=== PATIENT | female | born 1990 | race American Indian/Alaskan Native ===

== ENCOUNTER 2019-07-13 23:07 | Emergency (ER) | payer SELFPAY ==
[2019-07-14] MEDS ORDERED: IBUPROFEN PO ONE (00:19)
[2019-07-14] MEDS ORDERED: LIDOCAINE VISCOUS 2% PO ONE (00:20)
[2019-07-14] MEDS ORDERED: BICILLIN L-A IM ONE (01:35)
--- NOTE | 2019-07-14 01:50 | Emergency Department Report ---
ED General Adult HPI - General Chief complaint: Sore Throat Stated complaint: POSS STREP Source: patient Mode of arrival: Ambulatory Limitations: No Limitations - History of Present Illness Initial comments: Patient is a 28-year-old AA female with a history of chronic recurrent streptococcal pharyngitis who presents to the ED with c/o acute onset persistent severe sore throat and dysphagia for the last 2 weeks. Patient states that she has been taking [id number] medications with no relief. Patient denies fever, chills, nausea, vomiting, cough, nasal and sinus congestion, shortness of breath, chest pain, abdominal pain, dizziness, or headache. MD Complaint: Sore throat; dysphagia -: Gradual, week(s) (2) Location: mouth Radiation: non-radiation Severity scale (0 -10): 5 Quality: burning, aching Consistency: constant Improves with: none Associated Symptoms: denies other symptoms. denies: confusion, chest pain, cough, diaphoresis, fever/chills, headaches, loss of appetite, malaise, nausea/vomiting, rash, seizure, shortness of breath Treatments Prior to Arrival: none - Related Data Previous Rx's Medication Instructions Recorded Last Taken Type Ciprofloxacin HCl [Ciprofloxacin 500 mg PO Q12HR #14 tab 09/06/15 Unknown Rx TAB] Phenazopyridine [Pyridium] 200 mg PO Q8H #9 tab 09/06/15 Unknown Rx Acetaminophen/Codeine [Tylenol #3] 1 tab PO Q6H PRN #15 tab 10/28/15 Unknown Rx Ibuprofen [Motrin 800 MG tab] 800 mg PO Q8HR PRN #30 tablet 10/28/15 Unknown Rx Sulfamethoxazole/Trimethoprim 1 each PO BID #14 tablet 10/28/15 Unknown Rx [Bactrim DS TAB] cephALEXin [Keflex] 500 mg PO Q6HR #28 capsule 10/28/15 Unknown Rx Ibuprofen [Motrin] 600 mg PO Q8H PRN #20 tablet 07/14/19 Unknown Rx Lidocaine Viscous 2% 10 ml PO Q4H PRN #120 ml 07/14/19 Unknown Rx Allergies Allergy/AdvReac Type Severity Reaction Status Date / Time No Known Allergies Allergy Verified 09/06/15 03:17 ED Review of Systems ROS: Stated complaint: POSS STREP Other details as noted in HPI Constitutional: denies: chills, fever Eyes: denies: eye pain, eye discharge, vision change ENT: throat pain, other (dysphagia). denies: ear pain Respiratory: denies: cough, shortness of breath, wheezing Cardiovascular: denies: chest pain, palpitations Endocrine: no symptoms reported. denies: excessive sweating, flushing, intolerance to cold Gastrointestinal: denies: abdominal pain, nausea, diarrhea Genitourinary: denies: urgency, dysuria, discharge Musculoskeletal: arthralgia, myalgia. denies: back pain, joint swelling Skin: denies: rash, lesions Neurological: denies: headache, weakness, paresthesias Psychiatric: denies: anxiety, depression Hematological/Lymphatic: denies: easy bleeding, easy bruising ED Past Medical Hx - Past Medical History Hx Hypertension: Yes (not on meds) Hx Arthritis: No - Surgical History Past Surgical History?: Yes Additional Surgical History: X 1 - Social History Smoking Status: Never Smoker Substance Use Type: Alcohol - Medications Home Medications: Home Medications Medication Instructions Recorded Confirmed Last Taken Type Ciprofloxacin HCl [Ciprofloxacin 500 mg PO Q12HR #14 tab 09/06/15 Unknown Rx TAB] Phenazopyridine [Pyridium] 200 mg PO Q8H #9 tab 09/06/15 Unknown Rx Acetaminophen/Codeine [Tylenol #3] 1 tab PO Q6H PRN #15 tab 10/28/15 Unknown Rx Ibuprofen [Motrin 800 MG tab] 800 mg PO Q8HR PRN #30 tablet 10/28/15 Unknown Rx Sulfamethoxazole/Trimethoprim 1 each PO BID #14 tablet 10/28/15 Unknown Rx [Bactrim DS TAB] cephALEXin [Keflex] 500 mg PO Q6HR #28 capsule 10/28/15 Unknown Rx Ibuprofen [Motrin] 600 mg PO Q8H PRN #20 tablet 07/14/19 Unknown Rx Lidocaine Viscous 2% 10 ml PO Q4H PRN #120 ml 07/14/19 Unknown Rx ED Physical Exam - General Limitations: No Limitations General appearance: alert, in no apparent distress - Head Head exam: Present: atraumatic, normocephalic, normal inspection - Eye Eye exam: Present: normal appearance, PERRL, EOMI. Absent: scleral icterus, conjunctival injection, nystagmus, periorbital swelling Pupils: Present: normal accommodation - ENT ENT exam: Present: mucous membranes moist, TM's normal bilaterally, normal external ear exam, other (Erythematous oropharynx with mild white exudates) - Neck Neck exam: Present: normal inspection, full ROM. Absent: tenderness, meningismus, lymphadenopathy, thyromegaly - Respiratory Respiratory exam: Present: normal lung sounds bilaterally. Absent: respiratory distress, wheezes, rales, rhonchi, chest wall tenderness, accessory muscle use, decreased breath sounds, prolonged expiratory - Cardiovascular Cardiovascular Exam: Present: normal rhythm, tachycardia, normal heart sounds. Absent: systolic murmur, diastolic murmur, rubs, gallop - GI/Abdominal GI/Abdominal exam: Present: soft, normal bowel sounds. Absent: distended, tenderness, guarding, rebound, hyperactive bowel sounds, hypoactive bowel sounds, organomegaly, mass - Rectal Rectal exam: Present: deferred - Extremities Exam Extremities exam: Present: normal inspection, full ROM, normal capillary refill - Back Exam Back exam: Present: normal inspection, full ROM. Absent: tenderness, CVA tenderness (R), CVA tenderness (L), muscle spasm, paraspinal tenderness - Neurological Exam Neurological exam: Present: alert, oriented X3, CN II-XII intact, normal gait, reflexes normal - Psychiatric Psychiatric exam: Present: normal affect, normal mood, anxious - Skin Skin exam: Present: warm, dry, intact, normal color. Absent: rash ED Course Vital Signs 07/13/19 07/14/19 23:15 02:20 Temperature 98.2 F 98 F Pulse Rate 104 H 80 Respiratory 18 16 Rate Blood Pressure 147/98 Blood Pressure 126/87 [Left] O2 Sat by Pulse 10 L 100 Oximetry - Reevaluation(s) Reevaluation #1: 07/14/19 01:53 This is a 28-year-old female who presented to the ED with a sore throat and the sergeant for 2 weeks. Patient has a history of chronic recurrent streptococcal pharyngitis. Rapid strep is positive for group A strep. Patient was treated in the ED for pain and also given Bicillin 1.2 million units intramuscular injection for streptococcal pharyngitis. Patient was discharged home on pain medications and advised to follow-up with her primary care physician in 7-10 days for reevaluation or return to the ED immediately if symptoms get worse. ED Medical Decision Making - Medical Decision Making This is a 28-year-old female who presented to the ED with a sore throat and the sergeant for 2 weeks. Patient has a history of chronic recurrent streptococcal pharyngitis. Rapid strep is positive for group A strep. Patient was treated in the ED for pain and also given Bicillin 1.2 million units intramuscular injection for streptococcal pharyngitis. Patient was discharged home on pain medications and advised to follow-up with her primary care physician in 7-10 days for reevaluation or return to the ED immediately if symptoms get worse. - Differential Diagnosis Strep Pharyngitis; Viral pharyngitis; Tonsillitis Critical care attestation.: If time is entered above; I have spent that time in minutes in the direct care of this critically ill patient, excluding procedure time. ED Disposition Clinical Impression: Acute streptococcal pharyngitis, Acute bacterial tonsillitis Disposition: TO HOME OR SELFCARE Is pt being admited?: No Does the pt Need Aspirin: No Condition: Stable Instructions: Strep Throat (ED), Tonsillitis (ED) Additional Instructions: Take medications with food, drink plenty of fluids and follow up with your Primary Care Physician in 7-10 days for reevaluation. Return to the ED immediately if symptoms get worse. Prescriptions: Lidocaine Viscous 2% 10 ml PO Q4H PRN #120 ml PRN Reason: Pain , Severe (7-10) Ibuprofen [Motrin] 600 mg PO Q8H PRN #20 tablet PRN Reason: Pain Referrals: NEVA ZAMUDIO MD [Primary Care Provider] - 3-5 Days Forms: Work/School Release Form(ED) Time of Disposition: 02:01 Print Language: YI
[2019-07-14 02:21] VITALS: BP 126/87
== END 2019-07-14 02:43 | disposition home or self-care (01) ==
LOC: ED 23:07
DX: J03.90 Acute tonsillitis, unspecified (principal); J02.0 Streptococcal pharyngitis; I10 Essential (primary) hypertension; Z79.899 Other long term (current) drug therapy
CPT/HCPCS: 87430; 96372; 99283; J0561

== ENCOUNTER 2019-08-10 17:19 | Emergency (ER) | payer SELFPAY ==
--- NOTE | 2019-08-10 17:40 | Event Note ---
ED Screening Note ED Screening Note: +dysuria two days +vaginal discharge +sexually active states that her partner having similar symptoms LNMP: july 12 no PMHx no allergies to meds This initial assessment/diagnostic orders/clinical plan/treatment(s) is/are subject to change based on patients health status, clinical progression and re- assessment by fellow clinical providers in the ED. Further treatment and workup at subsequent clinical providers discretion. Patient/guardian urged not to elope from the ED as their condition may be serious if not clinically assessed and managed. Initial orders include: UA, urine preg
[2019-08-10 18:50] LABS: Bacteria,Urine 1+ /HPF (Negative); Bilirubin,Urine NEG (Negative); Blood,Urine MOD (Negative); Color,Urine Straw (Yellow); Protein,Urine <15 mg/dL mg/dL (Negative); RBC,Urine < 1.0 /HPF (0.0-6.0); Urobilinogen,Urine < 2.0 mg/dL (<2.0)
[2019-08-10 19:11] LABS: HCG Qualitative,Urine Negative (Negative)
[2019-08-10] MEDS ORDERED: AZITHROMYCIN 250 MG TAB PO ONE (20:11)
[2019-08-10] MEDS ORDERED: LIDOCAINE-MPF (1%) 10 MG/1 ML VIAL 5 ML INFILTRATI ONE (20:11)
--- NOTE | 2019-08-10 20:37 | Emergency Department Report ---
ED Female HPI - General Chief complaint: Urogenital-Female Stated complaint: CRAMPS/UTI Time Seen by Provider: 08/10/19 17:39 Source: patient Mode of arrival: Ambulatory Limitations: No Limitations - History of Present Illness Initial comments: Mr. Bullard is a 28-year-old -[place] female who presents for +dysuria two days +vaginal discharge +sexually active states that her partner having similar symptoms LNMP: july 12 no PMHx no allergies to meds no bleeding or exacerbating factors Complaint: vaginal discharge, dysuria, possible STD Onset/Timin -: days(s) Severity: moderate Severity scale (0 -10): 4 Quality: burning Consistency: intermittent Improves with: none Worsens with: urination Are you Now?: No Associated Symptoms: vaginal discharge - Related Data Sexually active: Yes Previous Rx's Medication Instructions Recorded Last Taken Type Ciprofloxacin HCl [Ciprofloxacin 500 mg PO Q12HR #14 tab 09/06/15 Unknown Rx TAB] Phenazopyridine [Pyridium] 200 mg PO Q8H #9 tab 09/06/15 Unknown Rx Acetaminophen/Codeine [Tylenol #3] 1 tab PO Q6H PRN #15 tab 10/28/15 Unknown Rx Ibuprofen [Motrin 800 MG tab] 800 mg PO Q8HR PRN #30 tablet 10/28/15 Unknown Rx Sulfamethoxazole/Trimethoprim 1 each PO BID #14 tablet 10/28/15 Unknown Rx [Bactrim DS TAB] cephALEXin [Keflex] 500 mg PO Q6HR #28 capsule 10/28/15 Unknown Rx Ibuprofen [Motrin] 600 mg PO Q8H PRN #20 tablet 07/14/19 Unknown Rx Lidocaine Viscous 2% 10 ml PO Q4H PRN #120 ml 07/14/19 Unknown Rx Amoxicillin/Potassium Clav 1 each PO BID 7 Days #14 tablet 07/30/19 Unknown Rx [Augmentin 875-125 Tablet] Cetirizine HCl [Zyrtec 10mg tab] 10 mg PO DAILY #30 tablet 07/30/19 Unknown Rx Fluticasone [Flonase] 1 spray NS QDAY #1 bottle 07/30/19 Unknown Rx metroNIDAZOLE [Flagyl] 500 mg PO BID 10 Days #20 tab 08/10/19 Unknown Rx Allergies Allergy/AdvReac Type Severity Reaction Status Date / Time No Known Allergies Allergy Verified 09/06/15 03:17 ED Review of Systems ROS: Stated complaint: CRAMPS/UTI Other details as noted in HPI Constitutional: denies: chills, fever Eyes: denies: eye pain, eye discharge, vision change ENT: denies: ear pain, throat pain Respiratory: denies: cough, shortness of breath, wheezing Cardiovascular: denies: chest pain, palpitations Endocrine: no symptoms reported Gastrointestinal: denies: abdominal pain, nausea, vomiting, diarrhea Genitourinary: urgency, dysuria, frequency, discharge. denies: hematuria, dyspareunia Musculoskeletal: denies: back pain Skin: denies: rash, lesions Neurological: denies: headache, weakness, paresthesias Psychiatric: denies: anxiety, depression Hematological/Lymphatic: denies: easy bleeding, easy bruising ED Past Medical Hx - Past Medical History Previous Medical History?: Yes Hx Hypertension: Yes (not on meds) Hx Arthritis: No - Surgical History Past Surgical History?: Yes Additional Surgical History: X 1 - Social History Smoking Status: Never Smoker Substance Use Type: Alcohol - Medications Home Medications: Home Medications Medication Instructions Recorded Confirmed Last Taken Type Ciprofloxacin HCl [Ciprofloxacin 500 mg PO Q12HR #14 tab 09/06/15 Unknown Rx TAB] Phenazopyridine [Pyridium] 200 mg PO Q8H #9 tab 09/06/15 Unknown Rx Acetaminophen/Codeine [Tylenol #3] 1 tab PO Q6H PRN #15 tab 10/28/15 Unknown Rx Ibuprofen [Motrin 800 MG tab] 800 mg PO Q8HR PRN #30 tablet 10/28/15 Unknown Rx Sulfamethoxazole/Trimethoprim 1 each PO BID #14 tablet 10/28/15 Unknown Rx [Bactrim DS TAB] cephALEXin [Keflex] 500 mg PO Q6HR #28 capsule 10/28/15 Unknown Rx Ibuprofen [Motrin] 600 mg PO Q8H PRN #20 tablet 07/14/19 Unknown Rx Lidocaine Viscous 2% 10 ml PO Q4H PRN #120 ml 07/14/19 Unknown Rx Amoxicillin/Potassium Clav 1 each PO BID 7 Days #14 tablet 07/30/19 Unknown Rx [Augmentin 875-125 Tablet] Cetirizine HCl [Zyrtec 10mg tab] 10 mg PO DAILY #30 tablet 07/30/19 Unknown Rx Fluticasone [Flonase] 1 spray NS QDAY #1 bottle 07/30/19 Unknown Rx metroNIDAZOLE [Flagyl] 500 mg PO BID 10 Days #20 tab 08/10/19 Unknown Rx ED Physical Exam - General Limitations: No Limitations General appearance: alert, in no apparent distress - Head Head exam: Present: atraumatic, normocephalic - Eye Eye exam: Present: normal appearance, PERRL, EOMI Pupils: Present: normal accommodation - ENT ENT exam: Present: mucous membranes moist - Neck Neck exam: Present: normal inspection - Respiratory Respiratory exam: Present: normal lung sounds bilaterally. Absent: respiratory distress, wheezes, rhonchi, chest wall tenderness - Cardiovascular Cardiovascular Exam: Present: regular rate, normal rhythm, normal heart sounds. Absent: systolic murmur, diastolic murmur, rubs, gallop - GI/Abdominal GI/Abdominal exam: Present: soft, normal bowel sounds. Absent: distended, tenderness, guarding, rebound, rigid, bruit, hernia - Rectal Rectal exam: Present: deferred - External exam: Present: normal external exam Speculum exam: Present: erythema, vaginal discharge (white brown malodorous discharge ), cervical discharge (scant blood ), vaginal bleeding (scant blood ). Absent: foreign body, tissue, laceration Bi-manual exam: Absent: cervical motion tendernes, adnexal tenderness, adnexal mass - Extremities Exam Extremities exam: Present: normal inspection - Back Exam Back exam: Present: normal inspection, full ROM. Absent: tenderness, CVA tenderness (R), CVA tenderness (L), muscle spasm, rash noted - Neurological Exam Neurological exam: Present: alert, oriented X3 - Psychiatric Psychiatric exam: Present: normal affect, normal mood - Skin Skin exam: Present: warm, dry, intact, normal color. Absent: rash ED Course Vital Signs 08/10/19 17:40 Temperature 98.7 F Pulse Rate 95 H Respiratory 16 Rate Blood Pressure 144/97 O2 Sat by Pulse 96 Oximetry ED Medical Decision Making - Medical Decision Making This is being treated with estimated exposure patient treated for STD exposure Rocephin and Zithromax will be sent home meds prescription for Flagyl patient will follow up with PCP in 2-3 days will return in 3 days for results of gonorrhea and Chlamydia cultures , Wet Prep also pending patient verbalizes agreement and understanding of discharge plan will be DC'd home in stable condition at this time Critical care attestation.: If time is entered above; I have spent that time in minutes in the direct care of this critically ill patient, excluding procedure time. ED Disposition Clinical Impression: Bacterial vaginosis, Exposure to STD Disposition: DC-01 TO HOME OR SELFCARE Is pt being admited?: No Does the pt Need Aspirin: No Condition: Stable Instructions: Bacterial Vaginosis (ED), Sexually Transmitted Diseases (ED) Prescriptions: metroNIDAZOLE [Flagyl] 500 mg PO BID 10 Days #20 tab Referrals: PRIMARY CARE,MD [Primary Care Provider] - 3-5 Days Forms: STI Treatment and Prevention, Work/School Release Form(ED) Time of Disposition: 21:47
[2019-08-10 22:04] VITALS: BP 132/90
== END 2019-08-10 22:02 | disposition home or self-care (01) ==
LOC: ED 17:19
DX: N76.0 Acute vaginitis (principal); B96.89 Other specified bacterial agents as the cause of diseases classified elsewhere; A64 Unspecified sexually transmitted disease; I10 Essential (primary) hypertension; Z79.899 Other long term (current) drug therapy
CPT/HCPCS: 81001; 81025; 96372; 99283; J0696